=== PATIENT | male | born 1945 | race American Indian/Alaskan Native ===

== ENCOUNTER 2022-07-23 07:27 | Day surgery (SDC) | payer MEDICARE ==
[~2022-07-23 07:27] MED LIST: MIDAZOLAM 2 MG/2 ML INJ IV NR; SODIUM CHLORIDE 0.9% 1000 ML 1,000 ML IV SCH; ceFAZolin/Water 2 GM/20 ML 2 GM/20 ML SYRINGE IV NR; fentaNYL 100 MCG/2 ML INJ IV PRN
[2022-07-23 09:10] LABS: Hematocrit 33.6 % (35.5-45.6); Hemoglobin 11.2 gm/dl (11.8-15.2); Mean Corpuscular HGB Conc 33 % (32-34); Mean Corpuscular Volume 96 fl (84-94); Platelet Count 204 K/mm3 (140-440); Red Cell Distribution Width 13.9 % (13.2-15.2)
--- NOTE | 2022-07-23 09:18 | Anesthesia Consultation ---
Anesthesia Consult and Med Hx Date of service: 07/23/22 - Airway Anesthetic Teeth Evaluation: Edentulous ROM Head & Neck: Adequate Mental/Hyoid Distance: Adequate Mallampati Class: Class II Intubation Access Assessment: Probably Good - Pre-Operative Health Status ASA Pre-Surgery Classification: ASA3 Proposed Anesthetic Plan: MAC Nerve Block: supraclavicular - Pulmonary Hx Smoking: Yes (1/2 PPD) Hx Respiratory Symptoms: No - Cardiovascular System Hx Hypertension: Yes Hx Heart Attack/AMI: No - Central Nervous System CVA: No - Endocrine Hx Renal Disease: Yes (CKD, not yet on HD) Hx Liver Disease: No Hx Insulin Dependent Diabetes: No Hx Non-Insulin Dependent Diabetes: No Hx Thyroid Disease: No
--- NOTE | 2022-07-23 09:19 | Anesthesia Day of Surgery ---
Anesthesia Day of Surgery - Day of Surgery Patient Examined: Yes Patient H&P Reviewed: Yes Patient is NPO: Yes
[2022-07-23] MEDS ORDERED: ROPIVACAINE/PF (0.5%) 5 MG/1 ML 30 ML VIAL ONE (09:20)
[2022-07-23 09:28] LABS: Calcium 8.7 mg/dL (8.4-10.2)
[2022-07-23] MEDS ORDERED: ceFAZolin/Water 2 GM/20 ML 2 GM/20 ML SYRINGE IV ONE (09:54)
--- NOTE | 2022-07-23 10:59 | Short Stay Summary ---
Short Stay Documentation Date of service: 07/23/22 Narrative H&P: The patient is a 77-year-old male with a history of Stage 4 renal disease who is not yet on dialysis however it is anticipated that he will require dialysis in the near future. He requires permanent dialysis access to avoid a permacath if he progresses. He does not have adequate vein for a fistula so he require a AV Graft. He was given the risk, benefits, and alternative procedures and consented to proceed. - History Past Medical History: hypertension, hyperlipidemia, renal failure Past Surgical History: No surgical history Social history: no significant social history - Allergies and Medications Current Medications: Allergies No Known Allergies Allergy (Verified 07/14/22 17:16) Home Medications Medication Instructions Recorded Confirmed Last Taken Type Finasteride 5 mg PO QDAY 07/14/22 07/23/22 07/22/22 09:00 History Sildenafil [Revatio] 50 mg PO QDAY PRN 07/14/22 07/14/22 Unknown History Sodium Bicarbonate 1,300 mg PO TID 07/14/22 07/23/22 07/22/22 17:30 History Tamsulosin [Flomax] 0.4 mg PO QDAY 07/14/22 07/23/22 07/22/22 09:00 History amLODIPine [Norvasc] 10 mg PO DAILY 07/14/22 07/23/22 07/23/22 05:30 History Active Medications Fentanyl (Fentanyl 100 Mcg/2 Ml Inj) 100 mcg IV ONCE PRN PRN Reason: sedation for nerve block Stop: 07/23/22 23:59 Sodium Chloride (Nacl 0.9% 1000 Ml) 1,000 mls @ 42 mls/hr IV DIRECT NICKY Stop: 07/23/22 23:59 Last Admin: 07/23/22 09:05 Dose: 42 mls/hr Midazolam HCl (Midazolam 2 Mg/2 Ml Inj) 2 mg IV PREOP NR Stop: 07/23/22 23:59 - Physical exam General appearance: no acute distress Lungs: Normal air movement Breasts: deferred Heart: Regular rate Gastrointestinal: normal Male Genitourinary: deferred Rectal Exam: deferred Extremities: no ischemia - Brief post op/procedure progress note Date of procedure: 07/23/22 Pre-op diagnosis: Stage IV Chronic Renal Insufficiency Post-op diagnosis: same Procedure: 1. Creation of Left Brachial Artery to Left Axillary Vein Arteriovenous Graft with 6 mm Bovine Artegraft Anesthesia: MAC, regional Surgeon: BRIANNA MEJIA Estimated blood loss: minimal Pathology: none Condition: stable - Disposition Condition at discharge: Good Disposition: 01 HOME / SELF CARE / HOMELESS Short Stay Discharge Plan Activity: other (No heavy lifting with left arm for 2 weeks.) Wound: open to air, keep clean and dry, other (Okay to shower and wash the left arm incisions with soap and water but do not soak in water for 2 weeks.) Follow up with: BRIANNA MEJIA MD [Staff Physician] - 14 Days Prescriptions: HYDROcodone/APAP 5-325 [[place] 5/325] 1 each PO Q4HR PRN #30 tablet PRN Reason: Pain
[2022-07-23] MEDS ORDERED: propofoL 200 MG/20 ML VIAL IV ONE ×2 (11:09)
[2022-07-23] MEDS ORDERED: LIDOCAINE MPF (2%) 20 MG/1 ML VIAL 5 ML ONE (11:09)
[2022-07-23] MEDS ORDERED: HEPARIN 10,000 UNITS/10 ML VIAL ONE ×2 (11:21→12:26)
[2022-07-23] MEDS ORDERED: BUPIVACAINE/PF (0.5%) 5 MG/1 ML 30 ML VIAL INFILTRATI ONE (11:21)
[2022-07-23] MEDS ORDERED: SODIUM CHLORIDE 0.9% 250ML 250 ML ONE (11:22)
[2022-07-23] MEDS ORDERED: rifAMPin 600 MG VIAL ONE (11:22)
[2022-07-23] MEDS ORDERED: SODIUM CHLORIDE P/F VIAL 10 ML 10 ML ONE (11:22)
[2022-07-23] MEDS ORDERED: rifAMPin 600 MG VIAL IV ONE (12:36)
[2022-07-23] MEDS ORDERED: SODIUM CHLORIDE 0.9% 250 ML IVPB IV ONE (12:36)
[2022-07-23] MEDS ORDERED: SODIUM CHLORIDE 0.9% 500 ML IVPB IV ONE (12:36)
[2022-07-23] MEDS ORDERED: HEPARIN 10,000 UNITS/10 ML VIAL IV ONE (12:36)
[2022-07-23] MEDS ORDERED: BUPIVACAINE/PF (0.5%) 5 MG/1 ML 10 ML VIAL INFILTRATI ONE (12:36)
[2022-07-23] MEDS ORDERED: SODIUM CHLORIDE 0.9% P/F 10 ML VIAL IV ONE (12:36)
[2022-07-23] MEDS ORDERED: SODIUM CHLORIDE 0.9% IRR 1,500 ML BOTTLE IR ONE ×2 (12:36)
[2022-07-23] MEDS ORDERED: hydrALAZINE 20 MG/1 ML INJ ONE (12:54)
--- NOTE | 2022-07-23 13:09 | Operative Report ---
Operative Report Operative Report: Date of procedure: 07/23/2022 Pre-operative diagnosis: Stage IV Chronic Renal Sufficiency Post-operative diagnosis: Same Procedure(s): 1. Creation of Left Brachial Artery to Left Axillary Vein AV Graft with 6 mm Bovine Graft Artergraft Surgeon: Ernie Dennis MD Amphibian Crewmember: None Anesthesia: Regional/MAC EBL: Minimal Counts: Correct Complications: None Condition: Stable Findings: Successful Creation of Left Arm AV Graft with Palpable Thrill and Palpable Radial Pulse at the Completion of the Case. Specimen: None Indication: The patient is a 77-year-old male with history of stage IV chronic renal sufficiency who was not yet on hemodialysis however it is anticipated that he will require hemodialysis in the near future. He is in need of permanent dialysis access to avoid the placement of a permacath. He has no vein for an arteriovenous fistula so he requires creation of an arteriovenous graft. He was given the risk, benefits, and alternative procedures and consented to the procedure. Description of Procedure: Prior to being transported to the operating room the patient had a regional block of the left arm performed. After the block was performed the patient was transported to the operating room and adequately sedated. The patient's left arm was then prepped and draped in normal sterile fashion. A longitudinal incision was made on the medial aspect of the arm just proximal to the antecubital crease and carried down to the brachial artery using sharp dissection. The brachial artery was dissected out circumferentially both proximally and distally and controlled with vessel loops. A second incision was created in longitudinal fashion on the medial aspect of the arm just distal to the axillary crease and carried down to the axillary vein using sharp dissection. Axillary vein was dissected out circumferentially and controlled with a vessel loop. I then used a Mariana-Wick tunneler to tunnel from the brachial artery incision to the axillary vein incision and then pulled an 6 mm bovine through the tunnel. I infused with heparinized saline to ensure that it was not twisted or kinked. I put the brachial artery vessel loops on tension controlling the flow and then created an arteriotomy using an 11 blade and Wakefield scissors. I beveled the graft and created an end-to-side anastomosis using 6-0 Prolene running fashion. I clamped the graft just proximal to the anastomosis and then released the vessel loops restoring flow in the brachial artery. I placed quick clot in incision to achieve hemostasis. I cut the proximal end of the graft to the appropriate length and beveled the graft in preparation for a venous anastomosis. I controlled the axillary vein a Satinsky clamp and created a venotomy using an 11 blade and Wakefield scissors. I created an end to side anastomosis using a 6-0 Prolene in running fashion. Prior to completing the anastomosis I flushed the graft to ensure there was no thrombus and then completed the anastamosis. I released all clamps allowing flow into the AV graft which had an excellent thrill. I packed the wound with quick clot to achieve hemostasis. I closed both wounds in 2 layers using 3-0 Vicryl in running fashion in the deep dermal layer and 4-0 Monocryl in running fashion the subcuticular layer. I dressed both wounds with Dermabond. The patient tolerated the procedure well all sponge, needle, and instrument counts were correct. The patient was taken to recovery in stable condition.
[2022-07-23] MEDS ORDERED: ONDANSETRON 4 MG/2 ML INJ IV SCH (15:00)
--- NOTE | 2022-07-23 16:39 | Post Anesthesia Evaluation ---
- Post Anesthesia Evaluation Patient Participated: Yes Airway Patent: Yes Stable Respiratory Function: Yes Nausea/Vomiting: No Temp > 96.8F: Yes Pain Manageable: Yes Adequeate Hydration: Yes Anesthesia Complications: No
[2022-07-23 18:09] VITALS: BP 168/74
== END 2022-07-23 15:15 | disposition home or self-care (01) ==
LOC: OR 07:27
PROVIDERS: ATTEND Surgery Vascular Surgery
DX: I12.9 Hypertensive chronic kidney disease with stage 1 through stage 4 chronic kidney disease, or unspecified chronic kidney disease (principal); N18.4 Chronic kidney disease, stage 4 (severe); M19.90 Unspecified osteoarthritis, unspecified site; Z72.89 Other problems related to lifestyle; Z91.81 History of falling; Z79.899 Other long term (current) drug therapy; Z98.890 Other specified postprocedural states; E78.5 Hyperlipidemia, unspecified
CPT/HCPCS: 36415; 36830; 64415; 80048; 85027; C1757; C1768; J0360; J0690; J1644; J2250; J2405; J2704; J2795; J3010; J3490; J7030; J7040; J7050; 64450